=== PATIENT | male | born 1995 | race Caucasian/White ===

== ENCOUNTER 2025-10-05 14:24 | Emergency (ER) | payer OTHER, SELFPAY ==
--- OUTSIDE RECORDS SUMMARY | 2021-04-02 07:59 | XMS_ITS | Continuity of Care Document ---
Author Organization [facility] Address [address] [address] [place] [address] Phone Care Team Providers Care Qa Consultant Name Role Phone Unavailable Unavailable Unavailable Allergies, Adverse Reactions, Alerts Substance Reaction Status Criticality No Known Allergies Active No Inform ation Medications Medication Instructions Dosage Effective Dates (start - stop) Status Comments Mavyret 100 mg-40 mg tablet take 3 tablet by oral route every day 3.00 tablet - Active Wellbutrin SR 150 mg tablet, 12 hr sustained-release take 1 by Oral route every day 1 - Active Procedures Procedure Date Routine Serum Collection Hepatic Function Panel Established Level 4 or 25-39 min 2019 Routine Serum Collection FibroScan Hep B Core Antibody New Level 4 or 45-59 min Advance Directives Directive Yes / No Effective Date File Name No Information Encounters Encounter Description Practice Location Reason(s) For Visit Diagnoses Date Provider Providers Copied on Encounter [facility], [address] [address], [place], [place], [id number], [place] tel:[phone] [facility] No Information No Information [facility], [address] [address], [place], [place], [id number], [place] tel:[phone] [facility] Chronic viral hepatitis C 1 No Information Referring Provider: Referral Self, USE FOR SELF REFERRALS. [facility], [address] [address], [place], [place], [address], [place] tel:[phone] [facility] Chronic hepatitis C without hepatic coma 1 No Information Established Level 4 or 25-39 min [facility], [address] [address], [place], [place], [id number], [place] tel:[phone] [facility] GI Symptoms or Concerns (chief complaint) Chronic hepatitis C without hepatic coma 0 No Information Referring Provider: Referral Self, USE FOR SELF REFERRALS. [facility], [address] [address], [place], [place], [address], tel:[phone] [facility] Chronic viral hepatitis C 0 No Information Referring Provider: Referral Self, USE FOR SELF REFERRALS. [facility], [address] [address], [place], [place], [address], [place] tel:[phone] [facility] No Information 0 Aguila [address]. [address] [place] [address], [place], [id number], . tel:[phone] New Level 4 or 45-59 min [facility], [address] [address], [place], [place], [address], [place] tel:[phone] [facility] GI Symptoms or Concerns (chief complaint) Chronic hepatitis C without hepatic coma 0 No Information Referring Provider: Rl Quesada, [address] [place] [address], [address]. tel:[phone] [facility], [address] [address], [place], [place], [address], tel:[phone] [facility] No Information 0 Soniya Purcell. [address] [facility], [facility] [[email or web address]] [address], [place], [address], [place]. tel:[phone] Family History Family Member Type Diagnosis Age At Onset Brother Problem (finding) alcoholism Sister Problem (finding) alcoholism Father Problem (finding) alcoholism Brother Problem (finding) Hepatitis C Immunizations Vaccine Date Status Comments tetanus toxoid, reduced diphtheria toxoid, and acellular pertussis vaccine, adsorbed administered Note: WANDA marley i-directional interface ; Source: Other Registry Afluria Qd administered Note: [facility] bi-directional interface ; Source: Other Registry Fluzone Quad 6mo or older [id number] administered Note: [facility] bi-direct ional interface ; Source: Other Registry meningococcal oligosaccharid e (groups A, C, Y and W-135) diphtheria toxoid conjugate vaccine (MCV4O) administered Note: [facility] bi-direct ional interface ; Source: Other Registry varicella virus vaccine administered Note : [facility] bi-directional interface ; Source: Other Registry tetanus toxoid, reduced diphtheria toxoid, and acellular pertussis vaccine, adsorbed administered Note: [facility] b i-directional interface ; Source: Other Registry measles, mumps and rubella v irus vaccine administered Note: [facility] bi-direct ional interface ; Source: Other Registry diphtheria, tetanus toxoids and acellular pertussis vaccine administered Note: [facility] b i-directional interface ; Source: Other Registry DTaP-hepatitis B and poliovi vicente vaccine administered Note: [facility] bi-direct ional interface ; Source: Other Registry measles, mumps and rubella v irus vaccine administered Note: [facility] bi-direct ional interface ; Source: Other Registry Haemophilus influenzae type b vaccine, conjugate unspecified formulation administered Note: [facility] bi-direct ional interface ; Source: Other Registry diphtheria, tetanus toxoids and acellular pertussis vaccine administered Note: [facility] b i-directional interface ; Source: Other Registry DTaP-hepatitis B and poliovi vicente vaccine administered Note: [facility] bi-direct ional interface ; Source: Other Registry Haemophilus influenzae type b vaccine, conjugate unspecified formulation administered Note: [facility] bi-direct ional interface ; Source: Other Registry DTaP-hepatitis B and poliovi vicente vaccine administered Note: [facility] bi-direct ional interface ; Source: Other Registry DTaP-hepatitis B and poliovi vicente vaccine administered Note: [facility] bi-direct ional interface ; Source: Other Registry Haemophilus influenzae type b vaccine, conjugate unspecified formulation administered Note: [facility] bi-direct ional interface ; Source: Other Registry hepatitis B vaccine, unspeci fied formulation administered Note: [facility] bi-direct ional interface ; Source: Other Registry Payers Payer name Insurance type Covered libertarian ID Authoriza tion(s) No Information Social History Type Description Quantity Date Captured Comments Alcohol Use Details Unknown Caffeine Use Details Unknown Tobacco Use Status Smoking Status No Information Sex Male Chief Complaint And Reason For Visit No Information Reason For Referral Reason For Referral No Information Plan Of Treatment Date Type Action Status Referral Ordered: HCV Genotyping Non Reflex Appointment date/timeframe: 09/19/2020 ordered History Of Present Illness Encounter Date Complaint History Of Prese nt Illness GI Symptoms or Concerns This pat ient is seen by virtual visit for followup of chronic hepatitis C. The patient continues to feel very well. He continues to live in sober housing. The patient now has a job at a warehouse and he is feeling extremely good about his health in general as well as sobriety in the future. The patient had some labs done and hepatitis B core antibody was negative. It appears that he was never been exposed to hepatitis B. Hepatitis C is genotype 1a. FibroScan was reviewed and this showed normal liver stiffness. His labs that were done prior to our consultation were again reviewed and the patient has elevation of his transaminases. The patient tells me that he is very motivated to treat hepatitis C. He also assures me that he is very reliable with taking medicines. GI Symptoms or Concerns This pat ient is sent for consultation regarding chronic hepatitis C as requested by Rl Ruffin PA-C. The patient says that he began using injectable drugs at about age 17. Sometime after that he was told that he had positive testing for hepatitis C. A liver biopsy apparently was recommended and the patient never pursued this. This was all done elsewhere and we have no records of this. The patient said that he continued to use injectable drugs until he entered treatment about 4 months ago. 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 He is now living in sober housing and feeling quite good and optimistic. The patient said that he used to drink alcohol, but this was fairly minimal compared to his drug use. The patient is on Wellbutrin and he says he remembers to take his medicines without fail. He had some labs drawn on August 15, 2020 that showed AST 61, ALT 107, alk phos 117, bilirubin 0.3, hepatitis C RNA 164,596 IU/mL. Hepatitis C Functional Status Date Functional Assessmen t No Information Instructions Date Instruction Additional Infor aleksandra No Information Assessments Type Assessment Date No Information Patient Care Teams Name Effective Dates (start - stop) Status Members No Information
--- OUTSIDE RECORDS SUMMARY | 2021-04-02 07:59 | XMS_ITS | Continuity of Care Document ---
Author Organization [facility] Address [address] [address] [place] [address] Phone Care Team Providers Care Entry Level Sales Representative Name Role Phone Unavailable Unavailable Unavailable Allergies, [...] Diagnoses Date Provider Providers Copied on Encounter [facility], [address] [address], [place], [place], [address], [place] tel:[phone] [facility] No Information No Information [facility], [address] [address], [place], [place], [address], [place] tel:[phone] [facility] Chronic viral hepatitis C 1 No Information Referring Provider: Referral Self, USE FOR SELF REFERRALS. [facility], [address] [address], [place], [place], [id number], [place] tel:[phone] [facility] Chronic hepatitis C without hepatic coma 1 No Information Established Level 4 or 25-39 min [facility], [address] [address], [place], [place], [address], [place] tel:[phone] [facility] GI Symptoms or Concerns (chief complaint) Chronic hepatitis C without hepatic coma 0 No Information Referring Provider: Referral Self, USE FOR SELF REFERRALS. [facility], [address] [address], [place], [place], [address], tel:[phone] [facility] Chronic viral hepatitis C 0 No Information Referring Provider: Referral Self, USE FOR SELF REFERRALS. [facility], [address] [address], [place], [place], [address], [place] tel:[phone] [facility] No Information 0 Aguila Lo. [address] [place] [address] [address], [place], [address], . tel:[phone] New Level 4 or 45-59 min [facility], [address] [address], [place], [place], [address], [place] tel:[phone] [facility] GI Symptoms or Concerns (chief complaint) Chronic hepatitis C without hepatic coma 0 No Information Referring Provider: Rl Quesada, [address] [place] [address], [address]. tel:[phone] [facility], [address] [address], [place], [place], [address], tel:[phone] [facility] No Information 0 Soniya Purcell. [address] [facility], [facility] [address], [place], [address], [place]. tel:[phone] Family History Family Member Type Diagnosis Age [...] Other Registry Fluzone Quad 6mo or older [id number] administered Note: [facility] bi-direct ional interface ; [...]
[2025-10-05 14:37] VITALS: BP 122/82; PULSE 71; RESP 16; TEMP 36.8; O2SAT 98; BMI 26.5
--- NOTE | 2025-10-05 14:42 | CRLHL7_ITS ---
For Patients: As a result of the Cures Act, medical imaging exams and procedure reports are released immediately into your electronic medical record. You may view this report before your referring provider. If you have questions, please contact your health care provider. INDICATION: Crush injury COMPARISON: None. TECHNIQUE: Three radiographic view(s) of the right 5th finger. FINDINGS: Acute mildly displaced and mildly angulated fracture of the proximal phalanx proximal shaft. No substantial degenerative change. IMPRESSION: Acute mildly displaced and mildly angulated fracture of the proximal phalanx proximal shaft. Dictated by River Hernandez MD @ 10/05/2025 3:25:40 PM (Electronically Signed)
--- NOTE | 2025-10-05 15:57 | ED_ITS ---
HPI - General Adult General Date Seen: 10/05/25 Chief complaint: Extremity Pain/Injury, Upper Stated complaint: right hand pinky finger broken Time Seen by Provider: 10/05/25 15:57 History of Present Illness HPI narrative: 30-year-old male presenting to the ER this afternoon for evaluation of an injury to his right hand pinky finger (5th digit). He was working on his car this afternoon. He accidentally injured his finger as he was removing a bolt from the shock on his truck. The spring on the shock abruptly shot out and struck him in the finger. He was not having any pain initially but noted deformity of the finger with the pinky bent sideways (he describes ulnar deviation). Since then he has been having pain from that pinky finger. No numbness. He was able to mostly straighten the finger out prior to arriving. He is right handed. He works as a arc and gas welder. No previous hand injuries. No other medical problems. He does not have primary care. He is from [facility]. He is visiting his family here in [place] to celebrate . Related Data Home Medications ?Medication ?Instructions ?Recorded ?Confirmed No Known Home Medications 10/05/2509/22 Allergies Allergy/AdvReac Type Severity Reaction Status Date / Time No Known Drug Allergies Allergy Verified 10/05/25 14:37 [facility] Social History Smoking Status: Current every day smoker How often do you have a drink containing alcohol: never AUDIT-C Alcohol total score: 0 Non-prescribed substance use: denies use Exam Narrative: Exam Narrative: Constitutional: Appears well-developed and well-nourished. Active. Non-toxic appearing. HENT: Head: Atraumatic. No signs of injury. Nose: No nasal discharge. Mouth/Throat: Mucous membranes are moist. Pharynx is normal. Tonsils symmetric. Uvula midline. Airway patent. Eyes: Conjunctivae normal and EOM are normal. Pupils are equal, round, and reactive to light. Right eye exhibits no discharge. Left eye exhibits no discharge. No icterus. Neck: Normal range of motion. Neck supple. No adenopathy. No stridor. Cardiovascular: Normal rate and regular rhythm. No murmur heard. No murmurs, rubs, or gallops. Brisk distal capillary refill Pulmonary/Chest: Effort normal. No stridor. No respiratory distress. No rales. No retractions. Musculoskeletal: Normal except for his right hand 5th digit-nor range of motion. No edema. No tenderness. No deformity. Right hand: Elbow, forearm, wrist are normal. Normal inspection of the hand except for the 5th digit. No tenderness over the hypothenar eminence, body the hand, thenar eminence. Thumb is nontender. Digits 2-4 are nontender. He does have swelling and deformity and tenderness on the 5th digit with tenderness over the proximal phalanx. Limited range of motion in the MCP, PIP, DI P due to pain. Intact radial and ulnar digital nerve sensory function. Normal distal cap refill. Neurological: Alert. Normal strength. No cranial nerve deficit or sensory deficit. Coordination normal. GCS eye subscore is 4. GCS verbal subscore is 5. GCS motor subscore is 6. Skin: Skin is warm. No rash noted. Const: Vital Signs, click to edit/add: Vital Signs - 24 hr 10/05/25 14:37 Temperature 98.3 F Pulse Rate [Pulse Oximeter] 71 Respiratory Rate 16 Blood Pressure [Ri t Upper Arm] 122/82 Pulse Oximetry 98 Oxygen Delivery Me thod Room Air Course Course ED Course: Procedure: Digital block Indication right hand, 5th digit proximal phalanx fracture Verbal consent obtained Sterile prep using Betadine Digital block from a volar technique using a total of 5 mL of 0.25% bupivacaine without epi. Good anesthesia achieved. Procedure: Reduction of finger fracture. Indication would be angulated right hand 5th digit fracture. After digital block I did perform reduction by applying distal traction to the patient's broken 5th digit. Distal traction was applied until the digit appeared to be out to length and straight and symmetric with the uninjured left hand. Careful attention was paid to avoid any angulation, ulnar or radial deviation, rotational deformity. Patient remained with normal brisk distal cap refill in tolerated procedure well. No discomfort. Procedure: Splint placement. Right hand, 5th digit Alumafoam splint. Indication would be right hand 5th finger proximal phalanx fracture. Splint was applied by . Careful attention was a plaid to fitting the splint carefully and angulating into position of comfort and maintaining be straight alignment of the finger. Vital Signs Vital signs: Initial Vital Signs Temperature 98.3 F 10/05/25 14:37 Temperature Source Temporal Artery Scan 10/05/25 14:37 Pulse Rate 71 10/05/25 14:37 Pulse Rhythm Regular 10/05/25 14:37 Respiratory Rate 16 10/05/25 14:37 Blood Pressure 122/82 10/05/25 14:37 Blood Pressure Mean 95 10/05/25 14:37 Blood Pressure Position Sitting 10/05/25 14:37 Pulse Oximetry 98 10/05/25 14:37 Oxygen Delivery Method Room Air 10/05/25 14:37 Vital Signs Temperature 98.3 F 10/05/25 14:37 Pulse Rate 71 10/05/25 14:37 Respiratory Rate 16 10/05/25 14:37 Blood Pressure 122/82 10/05/25 14:37 Pulse Oximetry 98 10/05/25 14:37 Oxygen Delivery Method Room Air 10/05/25 14:37 Temperature 98.3 F 10/05/25 14:37 Pulse Rate 71 10/05/25 14:37 Respiratory Rate 16 10/05/25 14:37 Blood Pressure 122/82 10/05/25 14:37 Pulse Oximetry 98 10/05/25 14:37 Oxygen Delivery Method Room Air 10/05/25 14:37 Medications Administered Medications: Discontinued Medications Generic Name Dose Route Start Last Admin Trade Name Freq PRN Reason Stop Dose Admin Bupivacaine HCl 30 ml 10/05/25 15:58 10/05/25 16:40 Bupivacaine 0.25% 30 Ml INJECTION 10/05/25 15:59 30 ml ONCE ONE Administration Medical Decision Making MDM Narrative Medical decision making narrative: Very pleasant generally healthy fully vaccinated 30-year-old male presenting to the ER today with a right hand 5th finger injury. He sustained just prior to arrival this afternoon while working on his motor vehicle. He has evidence for a closed, mildly angulated, mildly displaced fracture through the proximal phalange of his right hand 5th digit. He is neurovascularly intact. No sign of compartment syndrome. Digital block was performed. The visible angulation of the fracture was reduced and the patient was placed into a splint. He will need outpatient follow-up with orthopedics. Discussed that fracture in this location as a propensity to rehab angulate due to pressure from the tendons. He will wear the splint all the time. Since he is from [facility] he does not want to follow-up with orthopedics here in [place]. I would recommend that he follow up with doctors when he gets home, probably in the [facility]. He agrees to do so Discussed pain control with Tylenol, ice, ibuprofen. Prescription through [facility] for Cassopolis-8 tablets provided. Opiate and addiction and sedation precautions reviewed. Questions answered. ER return precautions reviewed. Imaging Data XR 5th finger: Attestation: I have reviewed the pertinent imaging results. Radiologist's impression: IMPRESSION: Acute mildly displaced and mildly angulated fracture of the proximal phalanx proximal shaft. Discharge Plan Discharge Clinical Impression: Finger fracture, right Patient Disposition: Home, Self-Care Condition: Stable Instructions: Finger Fracture (ED) Additional Instructions: As we discussed, please wear the splint all the time until you follow-up with orthopedics. Concern here is that if you take the splint off or try to move your finger too much that the broken bone will probably bend again due to the force of the tendons pulling on it. For pain control you can use Tylenol or ibuprofen every 6 hours as needed. Also use ice for 20 minutes every 3-4 hours. Use the prescription pain killer (Cassopolis) if needed if pain is uncontrolled by other interventions. However be careful with Cassopolis because it can cause dizziness, drowsiness, constipation, and can be addictive. Please avoid activities such as grabbing or lifting with your right hand because this can put strain on the broken finger. If you would like you can follow-up with the [facility]. You can call [phone] to arrange an ER follow-up visit. If you would like to see a orthopedic doctor in your home town, please call your local clinic when you get home to arrange a follow-up visit. Please bring your digital copies of your x-ray with you to your follow-up visit. Prescriptions: No Action No Known Home Medications Stand Alone Forms: Work/School Release, [place] Info Instructions
[2025-10-05] MEDS: BUPIVACAINE 0.25% 30 ML INJECTION (16:40)
--- OUTSIDE RECORDS SUMMARY | 2025-10-05 16:44 | XMS_ITS | Clinical Summary ---
Author Organization [facility] Address [address] [place] [address] Care Team Providers Care Cull Grader Name Role Phone Doctor, No Primary Care Provider Unavailabl e Allergies No known active allergies Social History Tobacco Use Types Packs/Day Years Used Date Smoking Tobacco: Never Assessed Sex and Gender Information Value Date Recorded Sex Assigned at Not on file Legal Sex Male 2:05 PM CDT Gender Identity Not on file Sexual Orientation Not on file Last Filed Vital Signs Vital Sign Reading Time Taken Comments Blood Pressure 129/88 05/09/2024 3:02 PM CDT Pulse 81 05/09/2024 3:02 PM CDT Temperature 37.1 C (98.7 F) 05/09/2024 3:02 PM CDT Respiratory Rate 18 05/09/2024 3:02 PM CDT Oxygen Saturation 99% 05/09/2024 3:02 PM CDT Inhaled Oxygen Concentration - - Weight - - Height 177.8 cm (5' 10) 05/09/2024 3:00 PM CDT Body Mass Index - - Plan of Treatment Health Maintenance Due Date Last Done Comments Anxiety Screening (CEE-2) 1996 Depression Assessment (PHQ-2) 1996 HPV Vaccine (1 - 3-dose SCDM series) 2022 COVID-19 Vaccine ( season) 2025 Influenza Vaccine (#1) 2025 09/18/2014 Adult Tetanus Booster 03/25/2033 03/25/2023 , 05/03/2016, 07/17/2008, Additional history exists RSV Vaccines (1 - 1-dose 75+ series) 2070 Hepatitis C Screening Completed 05/03/2016 Meningococcal B Vaccine Aged Out No l onger eligible based on patient's age to complete this topic Pneumococcal Vaccine Aged Out No long er eligible based on patient's age to complete this topic Care Teams Cull Grader Relationship Specialty Start Date End Date Doctor, No No ad PCP - General Radiology 05/09/24
--- OUTSIDE RECORDS SUMMARY | 2025-10-05 16:44 | XMS_ITS | Clinical Summary ---
Author Organization [facility] Address [address] [place] [id number] Care Team Providers Care Rn Renal Name Role Phone Pcp, No Primary Care Provider Unavailabl e Allergies No known active allergies Medications * This document contains information received from the source organization and may not represent a complete record from that organization. No known medications Active Problems Problem Noted Date Diagnosed Date Tobacco use disorder 03/28/2024 History of methamphetamine abuse 03/28/2024 Polysubstance dependence, non-opioid, in remissi on 03/28/2024 Alcohol dependence in early full remission 06/24 Family history of colonic polyps 09/11/2015 High risk sexual behavior 09/18/2014 Overview (09/18/2014): Multiple sexual partners without protection. 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 0 03/28/2024 Chlamydia 09/19/2014 03/28/2024 Acute hepatitis C without me ntion of hepatic coma 11/07/2012 09/18/2014 Acute hepatitis C without me ntion of hepatic coma 11/07/2012 08/29/2023 Overview (08/29/2023): 08/29/2023 - patient says went through treatment, thru GI, a few years ago and now is negative for hepatitis C IV drug abuse 11/03/2012 09/18/2014 Opiate abuse, episodic 11/03/201209/18 ALLERGIC RHINITIS CAUSE UNSPECIFIED 04/12/2012 09/18/2014 SOMATIC DYSFUNCTION, SPINE, CERVICAL-THORACIC 01/07/2009/18/2014 SOMATIC DYSFUNCTION, PELVIC 11/30/2011 09/18/2014 Lumbago 11/30/2011 09/18/2014 SOMATIC DYSFUNCTION, SPINE, THORACIC-LUMBAR 11/30/2011 09/18/2014 PHARYNGITIS-ACUTE 02/09/2011 03/11/2011 Immunizations Immunization Administration Dates Next Due DTaP 02/12/2000 [id number] (Pediarix) 01/14/2000,11/1995,02/03/1996,09/24 Hepatitis B, Unspecified 1995 Hib Conjugate, Unspecified 02/09/1997,02/03/1996 ,1995 Influenza, IIV4 09/18/2014 MENINGOCOCCAL VACCINE 2 VIAL [id number]-55YO (MENVEO) 09/18/2014 MMR, Unspecified 02/12/2000,02/09/1997 Polio Virus, Unspecified 01/14/2000,11/1995,02/03/1996,09/24 Tdap 03/25/2023,05/03/2016 Tdap, Unspecified 07/17/2008,04/28/1996 Varicella Vaccine 07/17/2008 Family History Medical History Relation Name Comments Cancer Maternal Grandfather Testicu lar Psychiatric illness Mother History of depression Relation Name Status Comments Father Alive Maternal Grandfather Mother Alive Social History Tobacco Use Types Packs/Day Years Used Date Smoking Tobacco: Every Day Cigarettes 1 1 Started: 01/27/2012; Last attempted to quit: 01/26/2013 Smokeless Tobacco: Never Tobacco Cessation:Ready to Q uit: Not Asked; Counseling Given: Not Answered Alcohol Use Standard Drinks/Week Comments No 0 (1 standard drink = 0.6 oz pur e alcohol) PHQ-2 Answer Date Recorded PHQ-2 TOTAL SCORE 0 08/28/2021 Social Connections Answer Date Recorded Frequency of Communication with Friends and Fami ly 0 08/29/2023 Financial Resource Strain Answer Date R ecorded Difficulty of Paying Living Expenses 3 08/29/2023 Difficulty of Paying Living Expenses Not on file 08/29/2023 Food Insecurity Answer Date Recorded Worried About Running Out of Food in the Last Ye ar 1 08/29/2023 Transportation Needs Answer Date Record ed Lack of Transportation (Medical) 1 08/29/2023 Housing Stability Answer Date Recorded Unable to Pay for Housing in the Last Year 1 08/29/2023 Sex and Gender Information Value Date Recorded Sex Assigned at Not on file Legal Sex Male 8:32 AM HAND FOLDER Gender Identity Not on file Sexual Orientation Not on file Occupation Industry Job Start Date Job End Date Unemployed Not on file Not on file Not on file Obstetrics History Last Filed Vital Signs Vital Sign Reading Time Taken Comments Blood Pressure 118/74 03/28/2024 11:31 AM CDT Pulse 70 03/28/2024 11:31 AM CDT Temperature 36.4 C (97.5 F) 10/26/2023 5:54 PM HAND FOLDER Respiratory Rate 14 10/26/2023 5:54 PM HAND FOLDER Oxygen Saturation 100% 10/26/2023 5:54 PM HAND FOLDER Inhaled Oxygen Concentration - - Weight 84.8 kg (187 lb) 03/28/2024 11:31 AM CDT Height 179 cm (5' 10.47) 03/28/2024 11:31 AM CD T Body Mass Index 26.47 03/28/2024 11:31 AM CDT Plan of Treatment Health Maintenance Due Date Last Done Comments Pneumococcal series for age 6-49 (1 of 2 - PCV) 2014 HPV series for age 9-45 (1 - 3-dose SCDM series) 2022 Depression screening for age 12+ 08/28/2022 08/28/20 21 BMI (ht and wt on same day) for age 18+ 03/28/2025 03/28/2024, 08/20/2020, 06/24/2020 Influenza Vaccine (#1) 2025 09/18/2014 Tetanus booster 03/25/2033 03/25/2023, 04/22, 07/17/2008, Additional history exists RSV vaccine for adults or (1 - 1-dose 75+ series) 2070 Hepatitis B series for 19+ Completed 01/14, 04/22/1996, 02/03/1996, Additional history exists HIV for age 15-65 Completed 09/18/2014, , 08/04/2012 Hepatitis C screening for ag e 18-79 Completed 05/03/2016, 05/03/2016, 09/18/2014, Additional history exists Procedures Procedure Name Priority Date/Time Associated Diagnosis Comments ACUTE HEPATITIS PANEL STAT 05/03/2016 3:50 PM CDT ANTI HIV 1/2 Routine 09/18/2014 10:41 AM CDT Exposure to sexually transmitted disease (STD) from Last 3 Months or Most Recently Relevant to Health Maintenance Results * (ABNORMAL) ACUTE HEPATITIS PANEL (05/03/2016 3:50 PM CDT) Pathologist [facility] HEPATITIS C ANTIBODY Reactive, Preliminary Positive(A) Non-Reactive 05/05/2016 8:50 AM CDT [facility] IGM ANTI HAV Non-Reactive Non-Reactive 05/05/2016 8:50 AM CDT [facility] HBSAG Nonreactive Nonreactive 05/05/2016 8:50 AM CDT [facility] IGM ANTI HBC Non-Reactive Non-Reactive 05/05/2016 8:50 AM CDT [facility] Blood specimen (specimen) BLOOD SPECIMEN / Unknown Venipuncture / Unknown 05/03/2016 3:50 PM CDT 05/03/2016 5:10 PM CDT Narrative [facility] - 05/05/2016 8:50 AM CDT Anti-HBc IgM not detected. Does not exclude the possibility of exposure to or infection with HBV. us Anne RAINES SEND OUTS Final Result [facility] [address] [place] [address], * ANTI HIV 1/2 (09/18/2014 10:41 AM CDT) Pathologist [facility] HIV-1/HIV-2 ANTIBODY Non-Reacti ve Non-Reacti ve 09/18/2014 4:55 PM CDT [facility] Blood specimen (specimen) BLOOD SPECIMEN / Unknown Venipuncture / Unknown 09/18/2014 10:41 AM CDT 09/18/2014 10:41 AM CDT Narrative [facility] - 09/18/2014 4:55 PM CDT HIV-1 p24 and HIV-1/HIV-2 Ab not detected us Kary Bowens MD SEND OUTS Final R esult [facility] [address] [place] [address], [place] from Last 3 Months or Most Recently Relevant to Health Maintenance Insurance MEDICAID MEDICAID [employer] Care Teams Rn Renal Relationship Specialty Start Date End Date Pcp, No . PCP - General 03/25/23
== END 2025-10-05 16:50 | disposition home or self-care (01) ==
LOC: ED 16:41
PROVIDERS: Emergency Provider Emergency Medicine
DX: S62.616A Displaced fracture of proximal phalanx of right little finger, initial encounter for closed fracture (principal); W22.8XXA Striking against or struck by other objects, initial encounter
CPT/HCPCS: 26725; 73140; 99282; 99284; J0665